=== PATIENT | female | born 1960 ===

== ENCOUNTER 2018-08-19 01:00 | Emergency (ER) | payer MEDICAID ==
[~2018-08-19] VITALS: Ht 165.1 cm; Wt 62.0 kg
[2018-08-19 01:04] VITALS: BP 138/90
[2018-08-19] MEDS ORDERED: TRAZODONE 50MG TABLET PO STA (01:39)
[2018-08-19] MEDS ORDERED: TRAZODONE 50MG TABLET ONE (01:45)
== END 2018-08-19 02:49 | disposition home or self-care (01) ==
LOC: ED 02:47
DX: R10.13 Epigastric pain (principal); Z76.0 Encounter for issue of repeat prescription
CPT/HCPCS: 99283